=== PATIENT | male | born 1960 | race African-American/Black ===

== ENCOUNTER 2023-10-09 14:19 | Inpatient (IN) | payer OTHER, MEDICAID ==
[~2023-10-09] VITALS: Ht 180.3 cm; Wt 72.6 kg
[2023-10-09 14:19] VITALS: BP 139/80; PULSE 98; RESP 20; TEMP 98; O2SAT 95
[2023-10-09] MEDS ORDERED: NACL 0.9% 1,000 ML IV ONE (14:40)
[2023-10-09] MEDS ORDERED: OLANZapine 10 MG VIAL IM ONE (14:50)
[2023-10-09 16:43] LABS: BASOPHILS # (AUTO) 0.1 K/uL (0.00-0.22); BASOPHILS % (AUTO) 0.8 % (0.0-2.0); EOSINOPHILS # (AUTO) 0.1 K/uL (0-0.4); EOSINOPHILS % (AUTO) 0.5 % (0.0-4.0); HEMATOCRIT 43.2 % (36-52); HEMOGLOBIN 14.3 g/dL (12.0-18.0); LYMPHOCYTES # (AUTO) 1.7 K/uL (2.0-11.5); LYMPHOCYTES % (AUTO) 15.1 % (20.5-51.1); MEAN CORPUSCULAR HEMOGLOBIN 28 pg (27-31); MEAN CORPUSCULAR HGB CONC 33 g/dL (33-37); MEAN CORPUSCULAR VOLUME 84.2 fL (80-94); MONOCYTES # (AUTO) 1.1 K/uL (0.8-1.0); MONOCYTES % (AUTO) 9.5 % (1.7-9.3); NEUTROPHILS # (AUTO) 8.5 K/uL (1.8-7.7); NEUTROPHILS % (AUTO) 74.1 % (42.2-75.2); PLATELET COUNT (AUTO) 347 K/uL (140-450); RED BLOOD CELL COUNT(AUTO) 5.13 MIL/uL (4.20-6.10); RED CELL DISTRIBUTION WIDTH 14.8 % (11.6-13.7); WHITE BLOOD COUNT (AUTO) 11.5 K/uL (4.8-10.8)
[2023-10-09 16:44] VITALS: O2SAT 98
[2023-10-09 16:57] LABS: ALANINE AMINOTRANSFERASE 23 U/L (12-78); ALBUMIN 3.8 g/dL (3.4-5.0); ALCOHOL, BLOOD < 3 mg/dL (<10); ALKALINE PHOSPHATASE 80 U/L (50-136); ANION GAP 14.1 (8-16); ASPARTATE AMINOTRANSFERASE 20 U/L (15-37); CALCIUM 8.8 mg/dL (8.5-10.1); CARBON DIOXIDE 27.5 mmol/L (21-32); CHLORIDE 110 mmol/L (98-107); CREATININE 1.4 mg/dL (0.6-1.3); GFR ARICAN-AMERICAN 65 mL/min (>90); GFR NON ARICAN-AMERICAN 54 mL/min (>90); GLUCOSE 95 mg/dL (74-106); POTASSIUM 3.6 mmol/L (3.5-5.1); SODIUM SERUM 148 mmol/L (136-145); UREA NITROGEN, BLOOD 13 mg/dL (7-18)
[2023-10-09 16:59] LABS: ACETAMINOPHEN < 0.5 ug/ml (10-30); SALICYLATE < 2.8 mg/dL (2.8-20.0)
[2023-10-09 18:41] VITALS: O2SAT 98
[2023-10-09 18:41] LABS: AMPHETAMINE, URINE POSITIVE ng/ml (NEG <=1000); BARBITURATE, URINE NEGATIVE ng/ml (NEG <=200); BENZODIAZEPINE, URINE NEGATIVE ng/mL (NEG <=200); CANNABINOID, URINE NEGATIVE ng/mL (NEG <=50); COCAINE, URINE POSITIVE ng/mL (NEG <=300); OPIATE, URINE NEGATIVE ng/mL (NEG <=2000); PHENCYCLIDINE SCREEN,URINE POSITIVE ng/mL (NEG <=25)
[2023-10-09] MEDS ORDERED: ACETAMINOPHEN 325 MG TAB PO PRN (22:45)
[2023-10-09] MEDS ORDERED: MORPHINE SULFATE 4 MG/ML SYR IVP PRN (22:45)
[2023-10-09] MEDS ORDERED: LORazepam 2 MG/ML VIAL IVP PRN (22:45)
[2023-10-09] MEDS ORDERED: ALBUTEROL 0.083% 2.5 MG/3 ML NEBU INH PRN (22:45)
[2023-10-10] MEDS: DEXT 5% / NACL 0.45% 1,000 ML IV SCH ×2 (00:14→09:57)
[2023-10-10] MEDS ORDERED: HALOPERIDOL IM 5 MG/ML VIAL IM ONE (04:45)
[2023-10-10 07:20] VITALS: O2SAT 98
[2023-10-10 07:38] LABS: BASOPHILS % (AUTO) 0.1 % (0.0-2.0); EOSINOPHILS % (AUTO) 0.1 % (0.0-4.0); HEMATOCRIT 47.2 % (36-52); HEMOGLOBIN 15.1 g/dL (12.0-18.0); LYMPHOCYTES % (AUTO) 6.3 % (20.5-51.1); MEAN CORPUSCULAR HEMOGLOBIN 28 pg (27-31); MEAN CORPUSCULAR HGB CONC 32 g/dL (33-37); MEAN CORPUSCULAR VOLUME 85.6 fL (80-94); MONOCYTES # (AUTO) 0.9 K/uL (0.8-1.0); MONOCYTES % (AUTO) 5.9 % (1.7-9.3); NEUTROPHILS % (AUTO) 87.6 % (42.2-75.2); PLATELET COUNT (AUTO) 304 K/uL (140-450); RED BLOOD CELL COUNT(AUTO) 5.51 MIL/uL (4.20-6.10); RED CELL DISTRIBUTION WIDTH 15.3 % (11.6-13.7); WHITE BLOOD COUNT (AUTO) 15.9 K/uL (4.8-10.8)
[2023-10-10 07:53] LABS: ALBUMIN 3.8 g/dL (3.4-5.0); ANION GAP 13.7 (8-16); CARBON DIOXIDE 25.1 mmol/L (21-32); CREATININE 1.1 mg/dL (0.6-1.3); POTASSIUM 3.8 mmol/L (3.5-5.1); TOTAL PROTEIN, SERUM 7.3 g/dL (6.4-8.2)
[2023-10-10 09:00] VITALS: BP 146/69; PULSE 81; RESP 20; TEMP 97; O2SAT 99
[2023-10-10] MEDS: chlordiazePOXIDE 25 MG CAP PO SCH ×3 (09:30→17:00)
[2023-10-10] MEDS: THIAMINE 200 MG/2 ML VIAL IM SCH (09:30)
[2023-10-10] MEDS: FOLIC ACID 1 MG TAB PO SCH (09:30)
[2023-10-10 15:58] VITALS: PULSE 80; RESP 15; O2SAT 98
[2023-10-10 16:00] VITALS: BP 156/78; PULSE 85; RESP 18; TEMP 98; O2SAT 98
[2023-10-10 20:00] VITALS: BP 142/80; PULSE 76; RESP 18; TEMP 97.2; O2SAT 97
[2023-10-10] MEDS: LORazepam 1 MG TAB PO PRN (23:39)
[2023-10-11] MEDS: DEXT 5% / NACL 0.45% 1,000 ML IV SCH (01:16)
[2023-10-11 05:48] LABS: BASOPHILS # (AUTO) 0.1 K/uL (0.00-0.22); BASOPHILS % (AUTO) 0.8 % (0.0-2.0); EOSINOPHILS # (AUTO) 0.2 K/uL (0-0.4); EOSINOPHILS % (AUTO) 1.6 % (0.0-4.0); HEMATOCRIT 43.6 % (36-52); HEMOGLOBIN 14.2 g/dL (12.0-18.0); LYMPHOCYTES # (AUTO) 2.9 K/uL (2.0-11.5); LYMPHOCYTES % (AUTO) 20.3 % (20.5-51.1); MEAN CORPUSCULAR HEMOGLOBIN 28 pg (27-31); MEAN CORPUSCULAR HGB CONC 33 g/dL (33-37); MEAN CORPUSCULAR VOLUME 84.2 fL (80-94); MONOCYTES # (AUTO) 1.2 K/uL (0.8-1.0); MONOCYTES % (AUTO) 8.1 % (1.7-9.3); NEUTROPHILS # (AUTO) 9.9 K/uL (1.8-7.7); NEUTROPHILS % (AUTO) 69.2 % (42.2-75.2); PLATELET COUNT (AUTO) 337 K/uL (140-450); RED BLOOD CELL COUNT(AUTO) 5.18 MIL/uL (4.20-6.10); RED CELL DISTRIBUTION WIDTH 15.2 % (11.6-13.7); WHITE BLOOD COUNT (AUTO) 14.3 K/uL (4.8-10.8)
[2023-10-11 06:29] LABS: ALBUMIN 3.1 g/dL (3.4-5.0); ANION GAP 9.9 (8-16); CALCIUM 8.2 mg/dL (8.5-10.1); CARBON DIOXIDE 26.5 mmol/L (21-32); CREATININE 1.2 mg/dL (0.6-1.3); POTASSIUM 3.4 mmol/L (3.5-5.1); TOTAL BILIRUBIN 0.6 mg/dL (0.0-1.0); TOTAL PROTEIN, SERUM 6.4 g/dL (6.4-8.2)
[2023-10-11] MEDS: FOLIC ACID 1 MG TAB PO SCH (09:38)
[2023-10-11] MEDS: chlordiazePOXIDE 25 MG CAP PO SCH ×3 (09:38→17:41)
[2023-10-11] MEDS: THIAMINE 200 MG/2 ML VIAL IM SCH (09:39)
[2023-10-11 20:00] VITALS: BP 142/75; PULSE 85; RESP 20; TEMP 98.1; O2SAT 97
[2023-10-11] MEDS: LORazepam 1 MG TAB PO PRN (22:54)
[2023-10-12 04:00] VITALS: BP 141/92; PULSE 83; RESP 19; TEMP 98; O2SAT 100
[2023-10-12 05:32] LABS: BASOPHILS # (AUTO) 0.1 K/uL (0.00-0.22); BASOPHILS % (AUTO) 1.2 % (0.0-2.0); EOSINOPHILS # (AUTO) 0.4 K/uL (0-0.4); EOSINOPHILS % (AUTO) 3.8 % (0.0-4.0); HEMATOCRIT 43.4 % (36-52); HEMOGLOBIN 14.3 g/dL (12.0-18.0); LYMPHOCYTES # (AUTO) 2.9 K/uL (2.0-11.5); MEAN CORPUSCULAR HEMOGLOBIN 28 pg (27-31); MEAN CORPUSCULAR HGB CONC 33 g/dL (33-37); MEAN CORPUSCULAR VOLUME 84.7 fL (80-94); MONOCYTES # (AUTO) 1.1 K/uL (0.8-1.0); MONOCYTES % (AUTO) 10.4 % (1.7-9.3); NEUTROPHILS # (AUTO) 6.2 K/uL (1.8-7.7); NEUTROPHILS % (AUTO) 57.6 % (42.2-75.2); PLATELET COUNT (AUTO) 323 K/uL (140-450); RED BLOOD CELL COUNT(AUTO) 5.13 MIL/uL (4.20-6.10); RED CELL DISTRIBUTION WIDTH 14.8 % (11.6-13.7); WHITE BLOOD COUNT (AUTO) 10.7 K/uL (4.8-10.8)
[2023-10-12 05:50] LABS: ALBUMIN 2.6 g/dL (3.4-5.0); ANION GAP 9.4 (8-16); CALCIUM 8.1 mg/dL (8.5-10.1); CARBON DIOXIDE 27.2 mmol/L (21-32); POTASSIUM 3.6 mmol/L (3.5-5.1); TOTAL BILIRUBIN 0.4 mg/dL (0.0-1.0); TOTAL PROTEIN, SERUM 6.3 g/dL (6.4-8.2)
[2023-10-12 07:18] VITALS: O2SAT 99
[2023-10-12 08:00] VITALS: BP 158/75; PULSE 74; RESP 18; TEMP 96.9; O2SAT 99
[2023-10-12] MEDS: THIAMINE 200 MG/2 ML VIAL IM SCH (10:07)
[2023-10-12] MEDS: chlordiazePOXIDE 25 MG CAP PO SCH ×2 (10:07→21:30)
[2023-10-12] MEDS: FOLIC ACID 1 MG TAB PO SCH (10:07)
[2023-10-12] MEDS: HYDROcodone/APAP 5/325 MG 1 TAB TAB PO PRN ×2 (10:37→15:15)
[2023-10-12] MEDS: DEXT 5% / NACL 0.45% 1,000 ML IV SCH ×4 (10:45→20:45)
[2023-10-12] MEDS: LORazepam 1 MG TAB PO PRN ×2 (15:16→23:30)
[2023-10-12 16:00] VITALS: BP 158/73; PULSE 77; RESP 18; TEMP 97.8; O2SAT 99
[2023-10-12 20:00] VITALS: PULSE 75; RESP 18; O2SAT 100
[2023-10-13] VITALS: BP 140/74; PULSE 75; RESP 18; TEMP 97.2; O2SAT 100
[2023-10-13] MEDS: DEXT 5% / NACL 0.45% 1,000 ML IV SCH ×2 (01:56→06:45)
[2023-10-13 07:13] LABS: BASOPHILS % (AUTO) 0.5 % (0.0-2.0); EOSINOPHILS # (AUTO) 0.5 K/uL (0-0.4); EOSINOPHILS % (AUTO) 5.2 % (0.0-4.0); HEMATOCRIT 46.9 % (36-52); HEMOGLOBIN 15.2 g/dL (12.0-18.0); LYMPHOCYTES # (AUTO) 2.4 K/uL (2.0-11.5); LYMPHOCYTES % (AUTO) 26.1 % (20.5-51.1); MEAN CORPUSCULAR HEMOGLOBIN 28 pg (27-31); MEAN CORPUSCULAR HGB CONC 32 g/dL (33-37); MEAN CORPUSCULAR VOLUME 85.4 fL (80-94); MONOCYTES % (AUTO) 10.5 % (1.7-9.3); NEUTROPHILS # (AUTO) 5.3 K/uL (1.8-7.7); NEUTROPHILS % (AUTO) 57.7 % (42.2-75.2); PLATELET COUNT (AUTO) 302 K/uL (140-450); RED BLOOD CELL COUNT(AUTO) 5.49 MIL/uL (4.20-6.10); RED CELL DISTRIBUTION WIDTH 15.5 % (11.6-13.7); WHITE BLOOD COUNT (AUTO) 9.2 K/uL (4.8-10.8)
[2023-10-13 07:33] VITALS: O2SAT 99
[2023-10-13 08:00] VITALS: BP 149/79; PULSE 85; RESP 18; TEMP 96.8; O2SAT 94
[2023-10-13 08:40] LABS: ALBUMIN 2.8 g/dL (3.4-5.0); ANION GAP 13.3 (8-16); CALCIUM 8.6 mg/dL (8.5-10.1); CARBON DIOXIDE 24.4 mmol/L (21-32); CREATININE 0.9 mg/dL (0.6-1.3); POTASSIUM 3.7 mmol/L (3.5-5.1); TOTAL BILIRUBIN 0.4 mg/dL (0.0-1.0); TOTAL PROTEIN, SERUM 6.6 g/dL (6.4-8.2)
[2023-10-13] MEDS: FOLIC ACID 1 MG TAB PO SCH (09:18)
[2023-10-13] MEDS: chlordiazePOXIDE 25 MG CAP PO SCH (09:18)
[2023-10-13] MEDS: THIAMINE 200 MG/2 ML VIAL IM SCH (09:18)
[2023-10-14] MEDS ORDERED: chlordiazePOXIDE 25 MG CAP PO SCH (09:00)
== END 2023-10-13 16:30 | disposition left against medical advice (07) | DRG 92 ==
LOC: MED 14:19 → MTU 22:53
PROVIDERS: ADMIT Family Medicine; ATTEND Family Medicine
DX: G92.8 Other toxic encephalopathy (principal); E87.0 Hyperosmolality and hypernatremia; N17.9 Acute kidney failure, unspecified; Z59.00 Homelessness unspecified; D72.829 Elevated white blood cell count, unspecified; F14.10 Cocaine abuse, uncomplicated; F15.10 Other stimulant abuse, uncomplicated; N18.9 Chronic kidney disease, unspecified
CPT/HCPCS: 36415; 70450; 71045; 80053; 80305; 85025; 87081; 93005; 96361; 96372; 96374; 96375; 97163-GP; 97530; 99291; G0480; G0482; J2060; J2270; J3411; J3490

== ENCOUNTER 2023-10-20 19:43 | Inpatient (IN) | payer OTHER, MEDICAID ==
[~2023-10-20] VITALS: Ht 175.3 cm; Wt 72.1 kg
[2023-10-20 19:55] VITALS: BP 162/86; PULSE 85; RESP 25; TEMP 97.4; O2SAT 98
[2023-10-20 20:45] LABS: BASOPHILS # (AUTO) 0.1 K/uL (0.00-0.22); BASOPHILS % (AUTO) 0.7 % (0.0-2.0); EOSINOPHILS # (AUTO) 0.4 K/uL (0-0.4); EOSINOPHILS % (AUTO) 4.3 % (0.0-4.0); HEMOGLOBIN 13.3 g/dL (12.0-18.0); LYMPHOCYTES # (AUTO) 2.7 K/uL (2.0-11.5); LYMPHOCYTES % (AUTO) 30.6 % (20.5-51.1); MEAN CORPUSCULAR HEMOGLOBIN 28 pg (27-31); MEAN CORPUSCULAR HGB CONC 33 g/dL (33-37); MEAN CORPUSCULAR VOLUME 84.3 fL (80-94); MONOCYTES % (AUTO) 11.4 % (1.7-9.3); NEUTROPHILS # (AUTO) 4.7 K/uL (1.8-7.7); PLATELET COUNT (AUTO) 318 K/uL (140-450); RED BLOOD CELL COUNT(AUTO) 4.74 MIL/uL (4.20-6.10); RED CELL DISTRIBUTION WIDTH 15.3 % (11.6-13.7); WHITE BLOOD COUNT (AUTO) 8.9 K/uL (4.8-10.8)
[2023-10-20 21:11] LABS: ANION GAP 10.9 (8-16); CALCIUM 8.4 mg/dL (8.5-10.1); CARBON DIOXIDE 30.2 mmol/L (21-32); CREATININE 0.9 mg/dL (0.6-1.3); POTASSIUM 4.1 mmol/L (3.5-5.1)
[2023-10-20 21:16] LABS: TOTAL BILIRUBIN 0.2 mg/dL (0.0-1.0); TOTAL PROTEIN, SERUM 6.4 g/dL (6.4-8.2)
[2023-10-20] MEDS ORDERED: MORPHINE SULFATE 2 MG/ML SYR IVP PRN (21:45)
[2023-10-20] MEDS ORDERED: MAGNESIUM HYDROXIDE 2400 MG/30 ML UDC PO PRN (21:45)
[2023-10-20] MEDS ORDERED: hydrALAZINE 20 MG/ML VIAL IVP PRN (21:45)
[2023-10-20] MEDS ORDERED: HYDROcodone/APAP 5/325 MG 1 TAB TAB PO PRN (21:45)
[2023-10-20] MEDS ORDERED: ALBUTEROL SULFATE/IPRATROPIU 3 ML SOL IH PRN (21:50)
[2023-10-20] MEDS ORDERED: LORazepam 2 MG/ML VIAL IVP PRN (21:55)
[2023-10-21] VITALS: O2SAT 98
[2023-10-21 03:20] VITALS: O2SAT 98
[2023-10-21 05:44] VITALS: O2SAT 98
[2023-10-21 08:22] LABS: BASOPHILS # (AUTO) 0.1 K/uL (0.00-0.22); EOSINOPHILS # (AUTO) 0.4 K/uL (0-0.4); HEMATOCRIT 43.6 % (36-52); HEMOGLOBIN 14.4 g/dL (12.0-18.0); LYMPHOCYTES # (AUTO) 2.7 K/uL (2.0-11.5); LYMPHOCYTES % (AUTO) 25.4 % (20.5-51.1); MEAN CORPUSCULAR HEMOGLOBIN 28 pg (27-31); MEAN CORPUSCULAR HGB CONC 33 g/dL (33-37); MEAN CORPUSCULAR VOLUME 84.3 fL (80-94); MONOCYTES # (AUTO) 1.3 K/uL (0.8-1.0); NEUTROPHILS % (AUTO) 57.6 % (42.2-75.2); PLATELET COUNT (AUTO) 365 K/uL (140-450); RED BLOOD CELL COUNT(AUTO) 5.16 MIL/uL (4.20-6.10); WHITE BLOOD COUNT (AUTO) 10.4 K/uL (4.8-10.8)
[2023-10-21 08:26] LABS: ANION GAP 10.4 (8-16); CARBON DIOXIDE 28.7 mmol/L (21-32); CREATININE 0.9 mg/dL (0.6-1.3); POTASSIUM 4.1 mmol/L (3.5-5.1)
[2023-10-21] MEDS: ENOXAPARIN 40 MG/0.4 ML SYR SUBQ SCH (09:00)
[2023-10-21 19:55] VITALS: PULSE 78; RESP 18; O2SAT 98
[2023-10-21] MEDS: ACETAMINOPHEN 325 MG TAB PO PRN (21:50)
[2023-10-21 23:05] VITALS: PULSE 70; RESP 18; O2SAT 100
[2023-10-22] VITALS (8 sets, daily range): BP systolic 121–169; BP diastolic 63–77; PULSE 67–85; RESP 17–20; TEMP 97.8–98.9; O2SAT 95–100
[2023-10-22] MEDS: guaiFENesin 20 MG/ML UDC PO PRN (08:43)
[2023-10-22] MEDS: ENOXAPARIN 40 MG/0.4 ML SYR SUBQ SCH (08:43)
[2023-10-22] MEDS: ACETAMINOPHEN 325 MG TAB PO PRN (14:33)
[2023-10-22] MEDS: LOSARTAN 50 MG TAB PO SCH (21:09)
[2023-10-23] VITALS (10 sets, daily range): BP systolic 121–138; BP diastolic 60–71; PULSE 69–90; RESP 18–28; TEMP 97.3–98.7; O2SAT 94–100
[2023-10-23 06:24] LABS: BASOPHILS # (AUTO) 0.1 K/uL (0.00-0.22); BASOPHILS % (AUTO) 0.6 % (0.0-2.0); EOSINOPHILS # (AUTO) 0.4 K/uL (0-0.4); HEMATOCRIT 44.2 % (36-52); HEMOGLOBIN 14.6 g/dL (12.0-18.0); LYMPHOCYTES # (AUTO) 2.9 K/uL (2.0-11.5); MEAN CORPUSCULAR HEMOGLOBIN 28 pg (27-31); MEAN CORPUSCULAR HGB CONC 33 g/dL (33-37); MEAN CORPUSCULAR VOLUME 84.2 fL (80-94); MONOCYTES # (AUTO) 0.9 K/uL (0.8-1.0); MONOCYTES % (AUTO) 10.5 % (1.7-9.3); NEUTROPHILS # (AUTO) 4.6 K/uL (1.8-7.7); NEUTROPHILS % (AUTO) 51.9 % (42.2-75.2); PLATELET COUNT (AUTO) 354 K/uL (140-450); RED BLOOD CELL COUNT(AUTO) 5.25 MIL/uL (4.20-6.10); WHITE BLOOD COUNT (AUTO) 8.9 K/uL (4.8-10.8)
[2023-10-23 06:52] LABS: ANION GAP 14.1 (8-16); CREATININE 0.9 mg/dL (0.6-1.3); POTASSIUM 4.1 mmol/L (3.5-5.1)
[2023-10-23] MEDS: guaiFENesin 20 MG/ML UDC PO PRN ×2 (09:49→21:08)
[2023-10-23] MEDS: CLOPIDOGREL 75 MG TAB PO SCH (09:49)
[2023-10-23] MEDS: LOSARTAN 50 MG TAB PO SCH ×2 (09:49→20:58)
[2023-10-23] MEDS: ATORVASTATIN 20 MG TAB PO SCH (09:49)
[2023-10-23] MEDS: ENOXAPARIN 40 MG/0.4 ML SYR SUBQ SCH (09:50)
[2023-10-23] MEDS ORDERED: ATOR20TA40 PO (10:16)
[2023-10-23] MEDS ORDERED: LOSA-270 PO (10:16)
[2023-10-23] MEDS ORDERED: CLOP75TA55 PO (10:16)
[2023-10-24] VITALS (7 sets, daily range): BP systolic 108–121; BP diastolic 50–64; PULSE 62–74; RESP 17–18; TEMP 98.2–98.6; O2SAT 96–100
[2023-10-24] MEDS: LOSARTAN 50 MG TAB PO SCH (08:43)
[2023-10-24] MEDS: ENOXAPARIN 40 MG/0.4 ML SYR SUBQ SCH (08:43)
[2023-10-24] MEDS: CLOPIDOGREL 75 MG TAB PO SCH (08:43)
[2023-10-24] MEDS: ATORVASTATIN 20 MG TAB PO SCH (08:44)
== END 2023-10-24 17:45 | disposition home health service (06) | DRG 206 ==
LOC: MED 19:43 → MTU 21:50
PROVIDERS: ADMIT Internal Medicine; ATTEND Internal Medicine
DX: M94.0 Chondrocostal junction syndrome [Tietze] (principal); E44.0 Moderate protein-calorie malnutrition; Z59.00 Homelessness unspecified; J98.11 Atelectasis; G40.909 Epilepsy, unspecified, not intractable, without status epilepticus; I11.9 Hypertensive heart disease without heart failure; E78.5 Hyperlipidemia, unspecified; F19.10 Other psychoactive substance abuse, uncomplicated; Z68.23 Body mass index [BMI] 23.0-23.9, adult; Z86.73 Personal history of transient ischemic attack (TIA), and cerebral infarction without residual deficits; Z90.81 Acquired absence of spleen
CPT/HCPCS: 36415; 71045; 80048; 80053; 83880; 84484; 85025; 87081; 93005; 94640; 97112; 97116; 97530; 99285; J0360; J1650

== ENCOUNTER 2023-12-30 20:21 | Inpatient (IN) | payer OTHER, MEDICAID ==
[~2023-12-30] VITALS: Ht 190.5 cm; Wt 84.8 kg
[~2023-12-30 20:21] MED LIST: ATOR20TA40 PO; CLOP75TA55 PO; LISI20TA29 PO; LOSA-270 PO
[2023-12-30 20:26] VITALS: BP 163/76; PULSE 100; RESP 20; TEMP 98.7; O2SAT 100
[2023-12-30 21:25] LABS: BASOPHILS % (AUTO) 0.4 % (0.0-2.0); EOSINOPHILS # (AUTO) 0.5 K/uL (0-0.4); EOSINOPHILS % (AUTO) 4.3 % (0.0-4.0); HEMATOCRIT 39.4 % (36-52); LYMPHOCYTES # (AUTO) 2.7 K/uL (2.0-11.5); LYMPHOCYTES % (AUTO) 23.1 % (20.5-51.1); MEAN CORPUSCULAR HEMOGLOBIN 27 pg (27-31); MEAN CORPUSCULAR HGB CONC 33 g/dL (33-37); MEAN CORPUSCULAR VOLUME 82.5 fL (80-94); MONOCYTES # (AUTO) 1.1 K/uL (0.8-1.0); MONOCYTES % (AUTO) 9.6 % (1.7-9.3); NEUTROPHILS # (AUTO) 7.2 K/uL (1.8-7.7); NEUTROPHILS % (AUTO) 62.6 % (42.2-75.2); PLATELET COUNT (AUTO) 301 K/uL (140-450); RED BLOOD CELL COUNT(AUTO) 4.77 MIL/uL (4.20-6.10); RED CELL DISTRIBUTION WIDTH 14.4 % (11.6-13.7); WHITE BLOOD COUNT (AUTO) 11.5 K/uL (4.8-10.8)
[2023-12-30] MEDS: ASPIRIN 325 MG TAB PO ONE (21:26)
[2023-12-30 21:35] LABS: CALCIUM 9.1 mg/dL (8.5-10.1); CARBON DIOXIDE 25.6 mmol/L (21-32); POTASSIUM 3.6 mmol/L (3.5-5.1)
[2023-12-30 21:37] LABS: INR 1.05 (0.8-1.2); PARTIAL THROMBOPLASTIN TIME 28.8 secs (22-35.6)
[2023-12-30 21:40] LABS: ALANINE AMINOTRANSFERASE 14 U/L (12-78); ALBUMIN 3.2 g/dL (3.4-5.0); ALKALINE PHOSPHATASE 78 U/L (50-136); ASPARTATE AMINOTRANSFERASE 17 U/L (15-37); BILIRUBIN,DIRECT 0.1 mg/dL (0.0-0.3); TOTAL BILIRUBIN 0.2 mg/dL (0.0-1.0)
[2023-12-30 23:41] LABS: FLU A ANTIGEN negative (NEGATIVE); FLU B ANTIGEN NEGATIVE (NEGATIVE)
[2023-12-30] MEDS ORDERED: hydrALAZINE 20 MG/ML VIAL IVP PRN (23:45)
[2023-12-30] MEDS ORDERED: ACETAMINOPHEN 325 MG TAB PO PRN (23:45)
[2023-12-30] MEDS ORDERED: ONDANSETRON 4 MG/2 ML VIAL IVP PRN (23:45)
[2023-12-30] MEDS ORDERED: ALBUTEROL 0.083% 2.5 MG/3 ML NEBU INH PRN (23:45)
[2023-12-30] MEDS: NACL 0.9% 1,000 ML IV SCH (23:58)
[2023-12-31 05:25] LABS: BASOPHILS # (AUTO) 0.1 K/uL (0.00-0.22); BASOPHILS % (AUTO) 0.7 % (0.0-2.0); EOSINOPHILS # (AUTO) 0.5 K/uL (0-0.4); EOSINOPHILS % (AUTO) 5.5 % (0.0-4.0); HEMATOCRIT 40.3 % (36-52); HEMOGLOBIN 13.6 g/dL (12.0-18.0); LYMPHOCYTES # (AUTO) 3.5 K/uL (2.0-11.5); LYMPHOCYTES % (AUTO) 38.7 % (20.5-51.1); MEAN CORPUSCULAR HEMOGLOBIN 28 pg (27-31); MEAN CORPUSCULAR HGB CONC 34 g/dL (33-37); MEAN CORPUSCULAR VOLUME 82.7 fL (80-94); MONOCYTES # (AUTO) 0.9 K/uL (0.8-1.0); MONOCYTES % (AUTO) 10.2 % (1.7-9.3); NEUTROPHILS % (AUTO) 44.9 % (42.2-75.2); PLATELET COUNT (AUTO) 297 K/uL (140-450); RED BLOOD CELL COUNT(AUTO) 4.87 MIL/uL (4.20-6.10); RED CELL DISTRIBUTION WIDTH 14.4 % (11.6-13.7)
[2023-12-31 08:00] VITALS: BP 113/71; PULSE 68; PULSE 85; PULSE 87; RESP 20; TEMP 97.2; O2SAT 97; O2SAT 99
[2023-12-31 08:03] VITALS: PULSE 85; RESP 18; O2SAT 100
[2023-12-31] MEDS: HYDROcodone/APAP 5/325 MG 1 TAB TAB PO PRN (09:27)
[2023-12-31] MEDS: LOSARTAN 50 MG TAB PO SCH (09:31)
[2023-12-31] MEDS: ASPIRIN 81 MG TAB.CHEW PO SCH (09:31)
[2023-12-31] MEDS: CLOPIDOGREL 75 MG TAB PO SCH (09:31)
[2023-12-31] MEDS: lisinopriL 20 MG TAB PO SCH (09:31)
[2023-12-31] MEDS: ATORVASTATIN 20 MG TAB PO SCH (09:32)
[2023-12-31 12:00] VITALS: BP 110/68; PULSE 100; PULSE 78; RESP 20; TEMP 98.1; O2SAT 97
[2023-12-31 16:00] VITALS: BP 137/59; PULSE 63; PULSE 89; RESP 20; TEMP 97.9; O2SAT 97
[2023-12-31 20:00] VITALS: BP 125/64; PULSE 93; RESP 18; TEMP 98.5; O2SAT 96
[2024-01-01 04:00] VITALS: BP 141/67; PULSE 74; RESP 18; TEMP 98; O2SAT 100
[2024-01-01 05:08] LABS: BASOPHILS # (AUTO) 0.1 K/uL (0.00-0.22); BASOPHILS % (AUTO) 1.2 % (0.0-2.0); EOSINOPHILS # (AUTO) 0.7 K/uL (0-0.4); EOSINOPHILS % (AUTO) 9.1 % (0.0-4.0); HEMATOCRIT 37.8 % (36-52); HEMOGLOBIN 12.5 g/dL (12.0-18.0); LYMPHOCYTES # (AUTO) 2.8 K/uL (2.0-11.5); LYMPHOCYTES % (AUTO) 34.7 % (20.5-51.1); MEAN CORPUSCULAR HEMOGLOBIN 27 pg (27-31); MEAN CORPUSCULAR HGB CONC 33 g/dL (33-37); MEAN CORPUSCULAR VOLUME 83.1 fL (80-94); MONOCYTES # (AUTO) 0.9 K/uL (0.8-1.0); MONOCYTES % (AUTO) 11.3 % (1.7-9.3); NEUTROPHILS # (AUTO) 3.5 K/uL (1.8-7.7); NEUTROPHILS % (AUTO) 43.7 % (42.2-75.2); PLATELET COUNT (AUTO) 287 K/uL (140-450); RED BLOOD CELL COUNT(AUTO) 4.55 MIL/uL (4.20-6.10); RED CELL DISTRIBUTION WIDTH 14.8 % (11.6-13.7); WHITE BLOOD COUNT (AUTO) 7.9 K/uL (4.8-10.8)
[2024-01-01 05:24] LABS: CALCIUM 8.5 mg/dL (8.5-10.1); CARBON DIOXIDE 27.9 mmol/L (21-32); CREATININE 1.2 mg/dL (0.6-1.3); POTASSIUM 3.9 mmol/L (3.5-5.1)
[2024-01-01 07:59] VITALS: PULSE 93
[2024-01-01 08:01] VITALS: PULSE 89; RESP 20; O2SAT 99
== END 2024-01-01 12:04 | disposition left against medical advice (07) | DRG 206 ==
LOC: MED 20:21 → MTU 23:45
PROVIDERS: ADMIT Student in an Organized Health Care Education/Training Program; ATTEND Student in an Organized Health Care Education/Training Program
DX: M94.0 Chondrocostal junction syndrome [Tietze] (principal); I24.9 Acute ischemic heart disease, unspecified; E44.0 Moderate protein-calorie malnutrition; Z59.00 Homelessness unspecified; Z20.822 Contact with and (suspected) exposure to COVID-19; F19.10 Other psychoactive substance abuse, uncomplicated; G40.909 Epilepsy, unspecified, not intractable, without status epilepticus; E78.5 Hyperlipidemia, unspecified; I10 Essential (primary) hypertension; Z86.73 Personal history of transient ischemic attack (TIA), and cerebral infarction without residual deficits; Z79.899 Other long term (current) drug therapy
CPT/HCPCS: 36415; 71045; 80048; 80076; 83880; 84484; 85025; 85610; 85730; 87081; 97112; 97116; 97163-GP; 97530; 99285

== ENCOUNTER 2024-01-12 05:59 | Inpatient (IN) | payer OTHER, MEDICAID ==
[~2024-01-12] VITALS: Ht 180.3 cm; Wt 77.1 kg
[2024-01-12] VITALS (7 sets, daily range): BP systolic 144–151; BP diastolic 57–77; PULSE 73–98; RESP 16–18; TEMP 97.5–97.8; O2SAT 95–100
[2024-01-12 07:40] LABS: BASOPHILS % (AUTO) 0.4 % (0.0-2.0); EOSINOPHILS # (AUTO) 0.5 K/uL (0-0.4); EOSINOPHILS % (AUTO) 5.2 % (0.0-4.0); HEMATOCRIT 37.7 % (36-52); HEMOGLOBIN 12.4 g/dL (12.0-18.0); LYMPHOCYTES % (AUTO) 23.3 % (20.5-51.1); MEAN CORPUSCULAR HEMOGLOBIN 27 pg (27-31); MEAN CORPUSCULAR HGB CONC 33 g/dL (33-37); MEAN CORPUSCULAR VOLUME 83.1 fL (80-94); MONOCYTES # (AUTO) 1.2 K/uL (0.8-1.0); MONOCYTES % (AUTO) 13.4 % (1.7-9.3); NEUTROPHILS % (AUTO) 57.7 % (42.2-75.2); PLATELET COUNT (AUTO) 346 K/uL (140-450); RED BLOOD CELL COUNT(AUTO) 4.53 MIL/uL (4.20-6.10); RED CELL DISTRIBUTION WIDTH 15.1 % (11.6-13.7); WHITE BLOOD COUNT (AUTO) 8.7 K/uL (4.8-10.8)
[2024-01-12 07:47] LABS: CALCIUM 8.6 mg/dL (8.5-10.1); CARBON DIOXIDE 28.8 mmol/L (21-32); POTASSIUM 3.8 mmol/L (3.5-5.1)
[2024-01-12] MEDS ORDERED: ALBUTEROL 0.083% 2.5 MG/3 ML NEBU INH ONE (09:24)
[2024-01-12] MEDS ORDERED: IPRATROPIUM 0.02% 0.5 MG/2.5 ML NEBU INH ONE (09:24)
[2024-01-12] MEDS: ALBUTEROL 0.083% 2.5 MG/3 ML NEBU INH ONE (09:27)
[2024-01-12] MEDS: IPRATROPIUM 0.02% 0.5 MG/2.5 ML NEBU INH ONE (09:27)
[2024-01-12 09:30] LABS: FLU A ANTIGEN negative (NEGATIVE); FLU B ANTIGEN negative (NEGATIVE)
[2024-01-12] MEDS ORDERED: ONDANSETRON 4 MG/2 ML VIAL IVP PRN (09:45)
[2024-01-12] MEDS ORDERED: ACETAMINOPHEN 325 MG TAB PO PRN (09:45)
[2024-01-12] MEDS: NACL 0.9% 1,000 ML IV SCH (10:42)
[2024-01-12] MEDS ORDERED: ALBUTEROL 0.083% 2.5 MG/3 ML NEBU INH SCH (13:00)
[2024-01-12] MEDS: HYDROcodone/APAP 5/325 MG 1 TAB TAB PO PRN (17:06)
[2024-01-12] MEDS ORDERED: LOSARTAN 50 MG TAB PO SCH (21:00)
[2024-01-13] VITALS (7 sets, daily range): BP systolic 122–138; BP diastolic 54–68; PULSE 68–83; RESP 15–18; TEMP 97.5–98.2; O2SAT 99–100
[2024-01-13 06:28] LABS: BASOPHILS # (AUTO) 0.1 K/uL (0.00-0.22); BASOPHILS % (AUTO) 1.1 % (0.0-2.0); EOSINOPHILS # (AUTO) 0.5 K/uL (0-0.4); HEMATOCRIT 35.8 % (36-52); LYMPHOCYTES # (AUTO) 2.2 K/uL (2.0-11.5); LYMPHOCYTES % (AUTO) 34.1 % (20.5-51.1); MEAN CORPUSCULAR HEMOGLOBIN 28 pg (27-31); MEAN CORPUSCULAR HGB CONC 34 g/dL (33-37); MEAN CORPUSCULAR VOLUME 82.7 fL (80-94); MONOCYTES # (AUTO) 0.9 K/uL (0.8-1.0); NEUTROPHILS # (AUTO) 2.8 K/uL (1.8-7.7); NEUTROPHILS % (AUTO) 42.8 % (42.2-75.2); PLATELET COUNT (AUTO) 348 K/uL (140-450); RED BLOOD CELL COUNT(AUTO) 4.33 MIL/uL (4.20-6.10); RED CELL DISTRIBUTION WIDTH 15.3 % (11.6-13.7); WHITE BLOOD COUNT (AUTO) 6.6 K/uL (4.8-10.8)
[2024-01-13 07:00] LABS: ANION GAP 10.6 (8-16); CALCIUM 8.3 mg/dL (8.5-10.1); CARBON DIOXIDE 27.4 mmol/L (21-32)
[2024-01-13] MEDS: lisinopriL 20 MG TAB PO SCH (09:01)
[2024-01-13] MEDS: CLOPIDOGREL 75 MG TAB PO SCH (09:01)
[2024-01-13] MEDS: ASPIRIN 81 MG TAB.CHEW PO SCH (09:01)
[2024-01-13] MEDS: ATORVASTATIN 20 MG TAB PO SCH (20:29)
[2024-01-13] MEDS: ZOLPIDEM 5 MG TAB PO PRN (20:30)
[2024-01-14 04:00] VITALS: BP 119/53; PULSE 82; RESP 18; TEMP 97.4; O2SAT 97
[2024-01-14 08:00] VITALS: PULSE 82
[2024-01-14 13:05] VITALS: BP 132/55; PULSE 77; RESP 18; TEMP 97.8; O2SAT 97
[2024-01-14 14:40] LABS: BASOPHILS # (AUTO) 0.1 K/uL (0.00-0.22); BASOPHILS % (AUTO) 1.1 % (0.0-2.0); EOSINOPHILS # (AUTO) 0.4 K/uL (0-0.4); EOSINOPHILS % (AUTO) 3.5 % (0.0-4.0); HEMATOCRIT 38.3 % (36-52); HEMOGLOBIN 12.4 g/dL (12.0-18.0); LYMPHOCYTES # (AUTO) 2.5 K/uL (2.0-11.5); LYMPHOCYTES % (AUTO) 19.2 % (20.5-51.1); MEAN CORPUSCULAR HEMOGLOBIN 27 pg (27-31); MEAN CORPUSCULAR HGB CONC 32 g/dL (33-37); MEAN CORPUSCULAR VOLUME 83.4 fL (80-94); MONOCYTES # (AUTO) 1.2 K/uL (0.8-1.0); MONOCYTES % (AUTO) 9.5 % (1.7-9.3); NEUTROPHILS # (AUTO) 8.5 K/uL (1.8-7.7); NEUTROPHILS % (AUTO) 66.7 % (42.2-75.2); PLATELET COUNT (AUTO) 359 K/uL (140-450); RED BLOOD CELL COUNT(AUTO) 4.59 MIL/uL (4.20-6.10); WHITE BLOOD COUNT (AUTO) 12.8 K/uL (4.8-10.8)
[2024-01-14 14:51] LABS: ANION GAP 11.8 (8-16); CALCIUM 8.8 mg/dL (8.5-10.1); CARBON DIOXIDE 26.6 mmol/L (21-32); CREATININE 1.2 mg/dL (0.6-1.3); POTASSIUM 4.4 mmol/L (3.5-5.1)
[2024-01-14 20:00] VITALS: BP 141/63; PULSE 69; PULSE 82; RESP 18; TEMP 98; O2SAT 100; O2SAT 99
[2024-01-15 08:00] VITALS: BP 128/51; PULSE 75; PULSE 96; RESP 16; TEMP 98.7; O2SAT 96
[2024-01-15 10:10] VITALS: PULSE 75; RESP 16; O2SAT 96
== END 2024-01-15 19:07 | DRG 313 ==
LOC: MED 05:59 → MTU 09:48
PROVIDERS: ADMIT Student in an Organized Health Care Education/Training Program; ATTEND Student in an Organized Health Care Education/Training Program
DX: R07.9 Chest pain, unspecified (principal); F19.10 Other psychoactive substance abuse, uncomplicated; Z20.822 Contact with and (suspected) exposure to COVID-19; E11.9 Type 2 diabetes mellitus without complications; I10 Essential (primary) hypertension; E78.5 Hyperlipidemia, unspecified; D72.829 Elevated white blood cell count, unspecified; Z88.1 Allergy status to other antibiotic agents; Z86.73 Personal history of transient ischemic attack (TIA), and cerebral infarction without residual deficits
CPT/HCPCS: 36415; 71045; 80048; 82948; 83880; 84484; 85025; 87081; 93005; 94640; 97163-GP; 97530; 99285; J7613; J7644; Q0092

== ENCOUNTER 2024-02-25 23:37 | Inpatient (IN) | payer OTHER, MEDICAID ==
[~2024-02-25] VITALS: Ht 182.9 cm; Wt 84.8 kg
[~2024-02-25 23:37] MED LIST changes: -LOSA-270 PO
[2024-02-25 23:41] VITALS: BP 123/92; PULSE 84; RESP 18; TEMP 97.8; O2SAT 96
[2024-02-25 23:47] VITALS: O2SAT 99
[2024-02-26 00:52] LABS: BASOPHILS # (AUTO) 0.1 K/uL (0.00-0.22); BASOPHILS % (AUTO) 0.6 % (0.0-2.0); EOSINOPHILS # (AUTO) 0.3 K/uL (0-0.4); EOSINOPHILS % (AUTO) 2.9 % (0.0-4.0); HEMATOCRIT 39.3 % (36-52); HEMOGLOBIN 12.9 g/dL (12.0-18.0); LYMPHOCYTES # (AUTO) 2.4 K/uL (2.0-11.5); LYMPHOCYTES % (AUTO) 22.8 % (20.5-51.1); MEAN CORPUSCULAR HEMOGLOBIN 27 pg (27-31); MEAN CORPUSCULAR HGB CONC 33 g/dL (33-37); MEAN CORPUSCULAR VOLUME 83.3 fL (80-94); MONOCYTES # (AUTO) 1.1 K/uL (0.8-1.0); MONOCYTES % (AUTO) 10.3 % (1.7-9.3); NEUTROPHILS # (AUTO) 6.7 K/uL (1.8-7.7); NEUTROPHILS % (AUTO) 63.4 % (42.2-75.2); PLATELET COUNT (AUTO) 378 K/uL (140-450); RED BLOOD CELL COUNT(AUTO) 4.72 MIL/uL (4.20-6.10); RED CELL DISTRIBUTION WIDTH 15.5 % (11.6-13.7); WHITE BLOOD COUNT (AUTO) 10.6 K/uL (4.8-10.8)
[2024-02-26 01:06] LABS: ANION GAP 10.9 (8-16); CALCIUM 8.9 mg/dL (8.5-10.1); CARBON DIOXIDE 29.9 mmol/L (21-32); POTASSIUM 3.8 mmol/L (3.5-5.1)
[2024-02-26 01:15] LABS: ALANINE AMINOTRANSFERASE 19 U/L (12-78); ALBUMIN 3.5 g/dL (3.4-5.0); ALKALINE PHOSPHATASE 61 U/L (50-136); ASPARTATE AMINOTRANSFERASE 16 U/L (15-37); BILIRUBIN,DIRECT 0.1 mg/dL (0.0-0.3); TOTAL BILIRUBIN 0.8 mg/dL (0.0-1.0); TOTAL PROTEIN, SERUM 6.8 g/dL (6.4-8.2)
[2024-02-26] MEDS ORDERED: ONDANSETRON 4 MG/2 ML VIAL IVP PRN (01:35)
[2024-02-26] MEDS ORDERED: ALBUTEROL 0.083% 2.5 MG/3 ML NEBU INH PRN (01:35)
[2024-02-26] MEDS ORDERED: HYDROcodone/APAP 5/325 MG 1 TAB TAB PO PRN (01:35)
[2024-02-26] MEDS ORDERED: ACETAMINOPHEN 325 MG TAB PO PRN (01:35)
[2024-02-26] MEDS ORDERED: LORazepam 2 MG/ML VIAL IVP PRN (01:35)
[2024-02-26 03:50] VITALS: O2SAT 98
[2024-02-26] MEDS: ATORVASTATIN 20 MG TAB PO SCH (09:49)
[2024-02-26] MEDS: lisinopriL 20 MG TAB PO SCH (09:50)
[2024-02-26] MEDS: CLOPIDOGREL 75 MG TAB PO SCH (09:50)
[2024-02-26 21:30] VITALS: BP 139/51; PULSE 70; PULSE 74; RESP 18; TEMP 97.5; O2SAT 98
[2024-02-27] VITALS: BP 132/48; PULSE 71; PULSE 85; RESP 18; TEMP 97.6; O2SAT 98
[2024-02-27 04:00] VITALS: BP 151/64; PULSE 79; PULSE 88; RESP 18; TEMP 97.4; O2SAT 97
[2024-02-27 05:26] LABS: BASOPHILS # (AUTO) 0.1 K/uL (0.00-0.22); EOSINOPHILS # (AUTO) 0.5 K/uL (0-0.4); HEMATOCRIT 39.5 % (36-52); HEMOGLOBIN 13.1 g/dL (12.0-18.0); LYMPHOCYTES # (AUTO) 2.1 K/uL (2.0-11.5); LYMPHOCYTES % (AUTO) 29.4 % (20.5-51.1); MEAN CORPUSCULAR HEMOGLOBIN 28 pg (27-31); MEAN CORPUSCULAR HGB CONC 33 g/dL (33-37); MONOCYTES # (AUTO) 1.1 K/uL (0.8-1.0); MONOCYTES % (AUTO) 14.9 % (1.7-9.3); NEUTROPHILS # (AUTO) 3.5 K/uL (1.8-7.7); NEUTROPHILS % (AUTO) 47.7 % (42.2-75.2); PLATELET COUNT (AUTO) 384 K/uL (140-450); RED BLOOD CELL COUNT(AUTO) 4.76 MIL/uL (4.20-6.10); RED CELL DISTRIBUTION WIDTH 15.8 % (11.6-13.7); WHITE BLOOD COUNT (AUTO) 7.3 K/uL (4.8-10.8)
[2024-02-27 06:10] LABS: CARBON DIOXIDE 27.2 mmol/L (21-32); CREATININE 1.1 mg/dL (0.6-1.3); POTASSIUM 4.2 mmol/L (3.5-5.1)
[2024-02-27 07:45] VITALS: O2SAT 100
[2024-02-27 08:00] VITALS: BP 151/64; PULSE 66; PULSE 70; PULSE 88; RESP 18; TEMP 97.4; O2SAT 97; O2SAT 98
[2024-02-27] MEDS: ASPIRIN 81 MG TAB.CHEW PO SCH (08:28)
[2024-02-27 19:50] VITALS: PULSE 76; RESP 16; O2SAT 97
[2024-02-27 20:00] VITALS: BP 139/72; PULSE 78; RESP 18; TEMP 97.5; O2SAT 97
[2024-02-28 04:00] VITALS: BP 154/71; PULSE 83; RESP 18; TEMP 98; O2SAT 99
[2024-02-28 08:00] VITALS: PULSE 110; RESP 18; O2SAT 98
[2024-02-28 12:00] VITALS: BP 138/69; PULSE 110; RESP 18; TEMP 98; O2SAT 98
== END 2024-02-28 14:25 | disposition left against medical advice (07) | DRG 206 ==
LOC: MED 23:37 → MTU 02-26 01:34
PROVIDERS: ADMIT Internal Medicine; ATTEND Internal Medicine
DX: M94.0 Chondrocostal junction syndrome [Tietze] (principal); G81.91 Hemiplegia, unspecified affecting right dominant side; Z59.00 Homelessness unspecified; I10 Essential (primary) hypertension; I11.9 Hypertensive heart disease without heart failure; E78.5 Hyperlipidemia, unspecified; Z86.73 Personal history of transient ischemic attack (TIA), and cerebral infarction without residual deficits; Z79.899 Other long term (current) drug therapy
CPT/HCPCS: 36415; 71045; 80048; 80076; 84484; 85025; 87081; 93005; 97110; 97116; 97163-GP; 97530; 99285; Q0092

== ENCOUNTER 2024-04-17 04:00 | Emergency (ER) | payer OTHER, MEDICAID ==
[~2024-04-17] VITALS: Ht 175.3 cm; Wt 72.6 kg
[2024-04-17 04:03] VITALS: BP 145/84; PULSE 80; RESP 20; TEMP 97.4; O2SAT 96
[2024-04-17 04:15] VITALS: O2SAT 100
[2024-04-17 09:52] VITALS: BP 145/84; PULSE 80; RESP 20; TEMP 97.4; O2SAT 96
== END 2024-04-17 09:52 | disposition home or self-care (01) ==
LOC: MED 04:00
DX: S00.83XA Contusion of other part of head, initial encounter (principal); Z59.00 Homelessness unspecified; E11.9 Type 2 diabetes mellitus without complications; I10 Essential (primary) hypertension; Z86.73 Personal history of transient ischemic attack (TIA), and cerebral infarction without residual deficits; Z86.69 Personal history of other diseases of the nervous system and sense organs; Z79.01 Long term (current) use of anticoagulants; Z79.899 Other long term (current) drug therapy; Z88.1 Allergy status to other antibiotic agents; W17.89XA Other fall from one level to another, initial encounter; Y93.89 Activity, other specified; Y92.89 Other specified places as the place of occurrence of the external cause; Y99.8 Other external cause status
CPT/HCPCS: 70450; 72125; 99284

== ENCOUNTER 2024-06-03 04:00 | Emergency (ER) | payer OTHER, MEDICAID ==
[~2024-06-03] VITALS: Ht 182.9 cm; Wt 77.1 kg
[2024-06-03 04:06] VITALS: BP 157/89; PULSE 72; RESP 20; TEMP 98; O2SAT 99
[2024-06-03 04:54] VITALS: O2SAT 97
[2024-06-03] MEDS: AZITHROMYCIN 500 MG in DEXTROSE 5% 250 ML IV ONE (05:00)
[2024-06-03 05:19] LABS: BASOPHILS # (AUTO) 0.1 K/uL (0.00-0.22); BASOPHILS % (AUTO) 1.1 % (0.0-2.0); EOSINOPHILS # (AUTO) 0.6 K/uL (0-0.4); EOSINOPHILS % (AUTO) 5.6 % (0.0-4.0); HEMATOCRIT 42.3 % (36-52); HEMOGLOBIN 13.7 g/dL (12.0-18.0); LYMPHOCYTES # (AUTO) 3.2 K/uL (2.0-11.5); LYMPHOCYTES % (AUTO) 31.6 % (20.5-51.1); MEAN CORPUSCULAR HEMOGLOBIN 27 pg (27-31); MEAN CORPUSCULAR HGB CONC 32 g/dL (33-37); MONOCYTES # (AUTO) 1.1 K/uL (0.8-1.0); MONOCYTES % (AUTO) 10.7 % (1.7-9.3); NEUTROPHILS # (AUTO) 5.2 K/uL (1.8-7.7); PLATELET COUNT (AUTO) 300 K/uL (140-450); RED BLOOD CELL COUNT(AUTO) 5.04 MIL/uL (4.20-6.10); RED CELL DISTRIBUTION WIDTH 15.3 % (11.6-13.7); WHITE BLOOD COUNT (AUTO) 10.2 K/uL (4.8-10.8)
[2024-06-03] MEDS: NACL 0.9% 2,000 ML IV ONE (05:22)
[2024-06-03] MEDS ORDERED: methylPREDNISolone SS 125 MG in WATER STERILE 2 ML IV ONE (05:25)
[2024-06-03] MEDS ORDERED: cefTRIAXone 1,000 MG VIAL ONE (05:27)
[2024-06-03] MEDS ORDERED: AZITHROMYCIN 500 MG INJ VIAL IV ONE (05:28)
[2024-06-03] MEDS ORDERED: CLAR500T99 PO (05:46)
[2024-06-03] MEDS ORDERED: PRED20TA5 PO (05:47)
[2024-06-03] MEDS: NACL 0.9% 1,000 ML IV ONE (05:56)
[2024-06-03] MEDS: methylPREDNISolone SS 125 MG/2 ML VIAL IVP ONE (06:01)
[2024-06-03 06:08] LABS: ANION GAP 12.2 (8-16); CALCIUM 8.7 mg/dL (8.5-10.1); CARBON DIOXIDE 25.4 mmol/L (21-32); POTASSIUM 3.6 mmol/L (3.5-5.1)
[2024-06-03 06:10] LABS: TOTAL BILIRUBIN 0.2 mg/dL (0.0-1.0)
[2024-06-03 06:11] LABS: ALBUMIN 3.2 g/dL (3.4-5.0); TOTAL PROTEIN, SERUM 6.7 g/dL (6.4-8.2)
[2024-06-03 06:14] LABS: LACTIC ACID 1.1 mmol/L (0.4-2.0)
[2024-06-03 06:56] VITALS: BP 122/51; PULSE 72; RESP 13; TEMP 98; O2SAT 97
== END 2024-06-03 06:57 | disposition home or self-care (01) ==
LOC: MED 04:00
DX: J20.9 Acute bronchitis, unspecified (principal); R06.02 Shortness of breath; J45.909 Unspecified asthma, uncomplicated; E11.9 Type 2 diabetes mellitus without complications; I10 Essential (primary) hypertension; F17.200 Nicotine dependence, unspecified, uncomplicated; Z86.73 Personal history of transient ischemic attack (TIA), and cerebral infarction without residual deficits; Z86.69 Personal history of other diseases of the nervous system and sense organs; Z79.899 Other long term (current) drug therapy; Z79.01 Long term (current) use of anticoagulants; Z88.1 Allergy status to other antibiotic agents
CPT/HCPCS: 36415; 36600; 71045; 80048; 80076; 83605; 85025; 87040; 93005; 96365; 96366; 96368; 96375; 99285; J0456; J0696; J2919; J7030; Q0092